=== PATIENT | male | born 1935 | race Caucasian/White ===

== ENCOUNTER 2018-03-06 13:15 | Outpatient (CLI) | payer MEDICARE ==
[2018-03-06] MEDS ORDERED: Gadobenate Dimeglumine 529 MG/1 ML (20ML VIAL) ONE (13:26)
--- NOTE | 2018-03-06 16:29 | MRI ---
MRI OF LUMBAR SPINE WITH AND WITHOUT CONTRAST 03/06/18 COMPARISON: MRI lumbar spine 09/07/17. HISTORY: Low back pain with history of lumbar spine surgery, lumbar stenosis with neurogenic claudication. TECHNIQUE: Multiplanar and multisequence MRI imaging of the lumbar spine provided with and without contrast. FINDINGS: On the basis of bilateral L5 pars defects there is anterolisthesis of L5 on S1 measuring 1.1 cm, stab le when compared to the 09/07/17 examination. On the basis of five lumbar type vertebral bodies, conus medullaris terminates at the T12 level. T12-L1: Intervertebral disc height and signal intensities within normal limits with no significant ce ntral canal or neural foraminal stenosis. L1-2: Mild bilateral facet hypertrophy. Intervertebral disc height appears normal. Mild disc desiccat ion. No central canal or neural foraminal stenosis. L2-3: Disc desiccation and mild disc space narrowing. Mild bilateral facet hypertrophy. No significan t central canal or neural foraminal stenosis. L3-4: Disc space narrowing, disc desiccation and disc bulge. Mild bilateral facet hypertrophy. No sig nificant central canal stenosis or neural foraminal stenosis. L4-5: There is disc desiccation. there is an annular tear in the central/right paracentral region. Th ere is no central canal stenosis. Bilateral facet hypertrophy noted, right greater than left. Mild le ft neural foraminal stenosis. L5-S1: Disc space narrowing, degenerative end plate change and bilateral facet hypertrophy. No centra l canal stenosis. Severe bilateral neural foraminal stenosis, stable. The imaged retroperitoneal structures demonstrate no acute findings. Incompletely imaged T2 hyperinte nse lesion in right kidney noted suggesting a probable cyst. Postcontrast imaging is provided. This demonstrates evidence of prior hemilaminectomy on the left at the L5-S1 level. Postcontrast imaging demonstrates no abnormal enhancement involving the nerve roots of the cauda equina, the intervertebral discs or the imaged osseous structures. IMPRESSION: Postoperative and degenerative changes seen within the lumbar spine as detailed above. The most signi ficant finding is severe bilateral neural foraminal stenosis at L5-S1 on the basis of anterolisthesis associated with bilateral L5 pars defects. POS: [facility]
== END 2018-03-06 13:16 | disposition home or self-care (01) ==
LOC: TBSIIMAG 13:15
PROVIDERS: ATTEND Neurological Surgery
DX: M48.062 Spinal stenosis, lumbar region with neurogenic claudication (principal); M47.816 Spondylosis without myelopathy or radiculopathy, lumbar region; M47.817 Spondylosis without myelopathy or radiculopathy, lumbosacral region; Z98.890 Other specified postprocedural states; M43.16 Spondylolisthesis, lumbar region; M48.07 Spinal stenosis, lumbosacral region
CPT/HCPCS: 72158; 82565; A9579

== ENCOUNTER 2018-04-21 22:12 | Emergency (ER) | payer MEDICARE ==
[2018-04-21 23:20] LABS: #Eosinphils 0.5 thou/uL (0.0-0.7); #Lymphocytes 2.7 thou/uL (1.20-3.40); #Monocytes 0.8 thou/uL (0.11-0.59); #Neutrophils 2.8 thou/uL (1.40-6.50); %Basophils 0.7 % (0.0-1.0); %Eosinophils 7.9 % (0.0-10.0); %Lymphocytes 39.2 % (21.0-51.0); %Monocytes 11.3 % (0.0-10.0); %Neutrophils 40.8 % (42.0-75.0); Mean Corpuscular HGB CONC 34.1 g/dL (32.0-36.0); Mean Corpuscular Hemoglobin 32.2 pg (27.0-31.0); Mean Corpuscular Volume 94.2 fL (78.0-98.0); Mean Platelet Volume 6.8 fL (7.4-10.4); Platelet Count 139 thou/uL (130-400); RBC Distribution Width 11.6 % (11.5-14.5); Red Blood Cell (RBC) Count 3.72 mill/uL (4.70-6.10); White Blood Cell (WBC) Count 6.8 thou/uL (4.8-10.8)
[2018-04-21] MEDS ORDERED: Lidocaine 2% Viscous Solution 20 ML, Aluminum & Magnesium Hydroxide 30 ML, Donnatal Eli... SSW SCH (23:45)
[2018-04-21 23:49] LABS: ALT (SGPT) 19 U/L (8-55); AST (SGOT) 20 U/L (5-34); Albumin 3.9 g/dL (3.4-4.8); Alkaline Phosphatase 32 U/L (40-150); Anion Gap 14 mmol/L (10-20); BUN (Urea Nitrogen) 27 mg/dL (8.4-25.7); Bilirubin, Total 0.6 mg/dL (0.2-1.2); Calc. Creatinine Clearance 0 mL/min (70-130); Calcium 9.7 mg/dL (7.8-10.44); Carbon Dioxide 25 mmol/L (23-31); Chloride 104 mmol/L (98-107); Estimated GFR-MDRD 53; Glucose 89 mg/dL (83-110); Lipase 61 U/L (8-78); Potassium 4.6 mmol/L (3.5-5.1); Protein, Total 5.9 g/dL (5.8-8.1); Sodium 138 mmol/L (136-145)
--- NOTE | 2018-04-22 07:52 | ULT ---
PRELIMINARY REPORT/[facility]/EMERGENTY AFTER-HOURS PROCEDURE US Abdomen Limited, Right Upper Quadrant EXAM DATE/TIME: 04/21/2018 11:51 PM CLINICAL HISTORY: 83 years old, male; Pain; Epigastric pain TECHNIQUE: Real-time ultrasound of the abdomen with image documentation. Examination was focused on the right up per quadrant. COMPARISON: No relevant prior studies available. FINDINGS: The liver exhibits homogeneous echogenicity. Normal gallbladder without cholelithiasis. No gallbladder wall thickening or pericholecystic fluid. The caliber of the common bile duct is normal measuring 4-5 mm. No intrahepatic biliary dilatation. Normal right kidney without hydronephrosis. The pancreas and abdominal aorta are never well visualized due to overlying bowel gas. No ascites. IMPRESSION: 1. Normal gallbladder. 2. No biliary tract dilatation. Thank you for allowing us to participate in the care of your patient. Dictated and Authenticated by: Miguel Crowell MD 04/22/2018 12:39 AM Central Time ([place] & [place]) FINAL REPORT RIGHT UPPER QUADRANT GALLBLADDER ULTRASOUND: FINDINGS: I agree with the preliminary report provided. No definite acute abnormality is evident. A small rig ht renal cyst is noted, measuring up to 3.8 cm. This is slightly larger than on a comparison CT date d 03/14/2014. IMPRESSION: 1. No acute sonographic abnormality within the right upper quadrant. 2. Right renal cyst. POS: [facility]
== END 2018-04-22 00:32 | disposition home or self-care (01) ==
LOC: ERS 22:12
DX: K29.70 Gastritis, unspecified, without bleeding (principal); E11.9 Type 2 diabetes mellitus without complications; E78.5 Hyperlipidemia, unspecified; E78.00 Pure hypercholesterolemia, unspecified; Z79.899 Other long term (current) drug therapy; Z79.84 Long term (current) use of oral hypoglycemic drugs; Z79.82 Long term (current) use of aspirin
CPT/HCPCS: 36415; 76705; 80053; 83690; 84484; 85025; 93005

== ENCOUNTER 2019-04-16 19:41 | Emergency (ER) | payer MEDICARE ==
--- NOTE | 2019-04-16 21:08 | RAD ---
XR Chest 1 View Portable HISTORY: Weakness COMPARISON: None FINDINGS: The heart size is normal. The lungs are well expanded without focal areas of consolidation, pneumothorax or pleural effusions. IMPRESSION: No radiographic evidence of acute cardiopulmonary process.
[2019-04-16 21:10] LABS: #Basophils 0.1 thou/uL (0.0-0.2); #Eosinphils 0.2 thou/uL (0.0-0.7); #Lymphocytes 2.4 thou/uL (1.20-3.40); #Neutrophils 4.9 thou/uL (1.40-6.50); %Basophils 0.8 % (0.0-1.0); %Eosinophils 2.2 % (0.0-10.0); %Lymphocytes 28.5 % (21.0-51.0); %Monocytes 11.2 % (0.0-10.0); %Neutrophils 57.3 % (42.0-75.0); Mean Corpuscular HGB CONC 34.7 g/dL (32.0-36.0); Mean Corpuscular Hemoglobin 32.6 pg (27.0-31.0); Mean Platelet Volume 7.5 fL (7.4-10.4); Platelet Count 166 thou/uL (130-400); RBC Distribution Width 11.4 % (11.5-14.5); Red Blood Cell (RBC) Count 3.67 mill/uL (4.70-6.10); White Blood Cell (WBC) Count 8.5 thou/uL (4.8-10.8)
[2019-04-16 21:29] LABS: ALT (SGPT) 16 U/L (8-55); AST (SGOT) 19 U/L (5-34); Albumin 3.6 g/dL (3.4-4.8); Alkaline Phosphatase 33 U/L (40-110); Anion Gap 13 mmol/L (10-20); BUN (Urea Nitrogen) 37 mg/dL (8.4-25.7); Bilirubin, Total 0.7 mg/dL (0.2-1.2); Calc. Creatinine Clearance 0 mL/min (70-130); Calcium 9.2 mg/dL (7.8-10.44); Carbon Dioxide 25 mmol/L (23-31); Chloride 102 mmol/L (98-107); Estimated GFR-MDRD 26; Globulin 2.2 g/dL (2.4-3.5); Glucose 158 mg/dL (83-110); Potassium 4.7 mmol/L (3.5-5.1); Protein, Total 5.8 g/dL (5.8-8.1); Sodium 135 mmol/L (136-145)
[2019-04-16 21:45] LABS: Bacteria/HPF None Seen HPF (None Seen); Bilirubin Negative (Negative); Blood, Urine 2+ (Negative); Clarity Turbid (Clear); Glucose, Urine (Dipstick) Normal (Negative); Leukocyte Negative Leu/uL (Negative); Nitrite Negative (Negative); Protein, Urine (Dipstick) 100 mg/dL (Neg-Trace); RBC/HPF 0-3 HPF (0-3); Squamous Epithelial 0-3 HPF (0-3); Urobilinogen Normal mg/dL (Less than 2)
[2019-04-16 21:52] LABS: CKMB 6.2 ng/mL (0-6.6)
[2019-04-17 01:05] LABS: Anion Gap 15 mmol/L (10-20); BUN (Urea Nitrogen) 34 mg/dL (8.4-25.7); Calc. Creatinine Clearance 0 mL/min (70-130); Calcium 8.8 mg/dL (7.8-10.44); Carbon Dioxide 19 mmol/L (23-31); Chloride 106 mmol/L (98-107); Estimated GFR-MDRD 31; Glucose 153 mg/dL (83-110); Potassium 4.9 mmol/L (3.5-5.1); Sodium 135 mmol/L (136-145)
[2019-04-17 01:28] LABS: CKMB 6.3 ng/mL (0-6.6)
== END 2019-04-17 01:28 | disposition home or self-care (01) ==
LOC: ERS 19:41
DX: E86.0 Dehydration (principal); E11.9 Type 2 diabetes mellitus without complications; E78.5 Hyperlipidemia, unspecified; E78.00 Pure hypercholesterolemia, unspecified; Z87.891 Personal history of nicotine dependence; Z79.899 Other long term (current) drug therapy; Z79.82 Long term (current) use of aspirin; Z79.84 Long term (current) use of oral hypoglycemic drugs
CPT/HCPCS: 36415; 71045; 80048; 80053; 81003; 81015; 82553; 83880; 84484; 85025; 93005; 96360; 96361

== ENCOUNTER 2019-05-06 07:36 | Outpatient (CLI) | payer MEDICARE ==
--- NOTE | 2019-05-06 08:16 | ULT ---
EXAM: US Gallbladder RUQ CLINICAL HISTORY: Epigastric pain. COMPARISON: 04/21/2018 FINDINGS: Pancreas: The head of pancreas in the proximal body of the pancreas have a normal echotexture. The r emainder the pancreas is obscured by bowel gas Liver:Limited evaluation hepatic parenchyma. Heterogeneous echotexture may be due to technical limita tions versus hepatic steatosis or hepatocellular disease. No definite hepatic masses or intrahepatic biliary dilatation. Right hepatic lobe: 10.9 cm Gallbladder: No sonographic evidence of cholelithiasis, gallbladder wall thickening or pericholecysti c fluid. Bardales's sign:Negative Portal Vein: Not adequately assessed Bile ducts: Common bile duct is not adequately visualized Right kidney: No hydronephrosis. Right kidney measures 5.0 x 4.6 x 9.9 cm in length. There is right r enal cortical thinning, measuring 1.4 cm. 2.0 x 2.4 x 4.1 exophytic cyst in the upper pole the right kidney. IMPRESSION: 1. Limited evaluation the liver. No obvious hepatic masses. 2. No definite sonographic evidence of cholelithiasis or cholecystitis. 3. Limited evaluation the common bile duct. 4. No hydronephrosis. Right renal cortical cysts. Right renal cortical thinning.
== END 2019-05-06 07:37 | disposition home or self-care (01) ==
LOC: ULT 07:36
PROVIDERS: ATTEND Family Medicine
DX: R10.13 Epigastric pain (principal); N28.1 Cyst of kidney, acquired; N28.89 Other specified disorders of kidney and ureter
CPT/HCPCS: 76705

== ENCOUNTER 2021-06-30 07:07 | Outpatient (CLI) | payer MEDICARE | END 2021-06-30 07:08 | disposition home or self-care (01) | LOC: BICULT 07:07 | PROVIDERS: ATTEND Family Medicine | DX: R10.9 Unspecified abdominal pain (principal); N28.1 Cyst of kidney, acquired | CPT/HCPCS: 76700 ==

== ENCOUNTER 2021-08-17 16:02 | Outpatient (CLI) | payer MEDICARE, OTHER | END 2021-08-17 16:03 | disposition home or self-care (01) | LOC: BICRAD 16:02 | PROVIDERS: ATTEND Family Medicine | DX: M16.11 Unilateral primary osteoarthritis, right hip (principal) ==

== ENCOUNTER 2021-09-07 10:49 | Outpatient (CLI) | payer MEDICARE | END 2021-09-07 10:50 | disposition home or self-care (01) | LOC: BICRAD 10:49 | PROVIDERS: ATTEND Orthopaedic Surgery | DX: M54.2 Cervicalgia (principal); M54.50 Low back pain, unspecified; M47.816 Spondylosis without myelopathy or radiculopathy, lumbar region; M43.17 Spondylolisthesis, lumbosacral region | CPT/HCPCS: 72040; 72100 ==

== ENCOUNTER 2021-12-02 09:49 | Emergency (ER) | payer MEDICARE ==
[2021-12-02 11:32] LABS: #Eosinphils 0.3 thou/uL (0.0-0.7); #Lymphocytes 1.6 thou/uL (1.20-3.40); #Monocytes 0.6 thou/uL (0.11-0.59); #Neutrophils 3.3 thou/uL (1.40-6.50); %Basophils 0.5 % (0.0-1.0); %Eosinophils 5.6 % (0.0-10.0); %Lymphocytes 27.1 % (21.0-51.0); %Monocytes 9.9 % (0.0-10.0); %Neutrophils 56.9 % (42.0-75.0); Hemoglobin 11.3 g/dL (14.0-18.0); Mean Corpuscular HGB CONC 32.5 g/dL (32.0-36.0); Mean Corpuscular Hemoglobin 31.1 pg (27.0-31.0); Mean Corpuscular Volume 95.5 fL (78.0-98.0); Mean Platelet Volume 7.2 fL (7.4-10.4); Platelet Count 162 thou/uL (130-400); RBC Distribution Width 13.3 % (11.5-14.5); Red Blood Cell (RBC) Count 3.64 mill/uL (4.70-6.10); White Blood Cell (WBC) Count 5.8 thou/uL (4.8-10.8)
[2021-12-02 11:53] LABS: ALT (SGPT) 9 U/L (8-55); AST (SGOT) 15 U/L (5-34); Albumin 3.6 g/dL (3.4-4.8); Alkaline Phosphatase 40 U/L (40-110); Anion Gap 11 mmol/L (10-20); BUN (Urea Nitrogen) 17 mg/dL (8.4-25.7); Bilirubin, Total 1.1 mg/dL (0.2-1.2); Calc. Creatinine Clearance 0 mL/min (70-130); Calcium 9.4 mg/dL (7.8-10.44); Carbon Dioxide 26 mmol/L (23-31); Chloride 102 mmol/L (98-107); Estimated GFR 66; Globulin 2.6 g/dL (2.4-3.5); Glucose 118 mg/dL (83-110); Potassium 4.1 mmol/L (3.5-5.1); Protein, Total 6.2 g/dL (5.8-8.1); Sodium 135 mmol/L (136-145)
[2021-12-02 12:20] LABS: CKMB 2.5 ng/mL (0-6.6)
== END 2021-12-02 13:30 | disposition home or self-care (01) ==
LOC: ERS 09:49
DX: R07.89 Other chest pain (principal); E11.9 Type 2 diabetes mellitus without complications; E78.5 Hyperlipidemia, unspecified; E78.00 Pure hypercholesterolemia, unspecified; Z87.891 Personal history of nicotine dependence; Z95.0 Presence of cardiac pacemaker; Z79.899 Other long term (current) drug therapy; Z79.84 Long term (current) use of oral hypoglycemic drugs
CPT/HCPCS: 36415; 71045; 80053; 82553; 83880; 84484; 85025; 93005; 94760

== ENCOUNTER 2022-01-08 11:05 | Emergency (ER) | payer MEDICARE ==
[2022-01-08] MEDS ORDERED: Bacitracin 1 PK ONE (12:19)
== END 2022-01-08 12:29 | disposition home or self-care (01) ==
LOC: ERS 11:05
DX: E11.621 Type 2 diabetes mellitus with foot ulcer (principal); L97.501 Non-pressure chronic ulcer of other part of unspecified foot limited to breakdown of skin; L03.90 Cellulitis, unspecified; E78.00 Pure hypercholesterolemia, unspecified; Z79.84 Long term (current) use of oral hypoglycemic drugs; Z79.899 Other long term (current) drug therapy; Z87.891 Personal history of nicotine dependence
CPT/HCPCS: 99283

== ENCOUNTER 2022-06-08 07:08 | Emergency (ER) | payer MEDICARE ==
[2022-06-08 07:49] LABS: #Eosinphils 0.3 thou/uL (0.0-0.7); #Lymphocytes 1.5 thou/uL (1.20-3.40); #Monocytes 0.9 thou/uL (0.11-0.59); #Neutrophils 3.6 thou/uL (1.40-6.50); %Basophils 0.7 % (0.0-1.0); %Eosinophils 5.3 % (0.0-10.0); %Lymphocytes 23.6 % (21.0-51.0); %Monocytes 14.5 % (0.0-10.0); %Neutrophils 55.8 % (42.0-75.0); Hemoglobin 9.2 g/dL (14.0-18.0); Mean Corpuscular HGB CONC 32.5 g/dL (32.0-36.0); Mean Corpuscular Volume 98.3 fl (78.0-98.0); Mean Platelet Volume 6.9 fL (7.4-10.4); Platelet Count 193 10x3/uL (130-400); Red Blood Cell (RBC) Count 2.87 mill/uL (4.70-6.10); White Blood Cell (WBC) Count 6.4 10x3/uL (4.8-10.8)
[2022-06-08 08:03] LABS: ALT (SGPT) 24 U/L (8-55); AST (SGOT) 22 U/L (5-34); Albumin 3.6 g/dL (3.4-4.8); Alkaline Phosphatase 47 U/L (40-110); Anion Gap 13 mmol/L (10-20); BUN (Urea Nitrogen) 23 mg/dL (8.4-25.7); Bilirubin, Total 0.7 mg/dL (0.2-1.2); Calc. Creatinine Clearance 0 mL/min (70-130); Calcium 8.9 mg/dL (7.8-10.44); Carbon Dioxide 21 mmol/L (23-31); Chloride 104 mmol/L (98-107); Estimated GFR 42; Globulin 2.4 g/dL (2.4-3.5); Glucose 118 mg/dL (83-110); Potassium 4.3 mmol/L (3.5-5.1); Sodium 134 mmol/L (136-145)
[2022-06-08 08:36] LABS: Bilirubin Negative (Negative); Blood, Urine Negative (Negative); Clarity Clear (Clear); Glucose, Urine (Dipstick) Normal (Negative); Ketone, Urine Trace mg/dL (Negative); Leukocyte Negative Leu/uL (Negative); Nitrite Negative (Negative); Protein, Urine (Dipstick) Negative (Neg-Trace); Urobilinogen Normal mg/dL (Less than 2)
[2022-06-08] MEDS ORDERED: HYDROcodone/Acetaminophen 7.5/325 mg Tablet ONE ×2 (10:15→10:21)
== END 2022-06-08 10:33 | disposition home or self-care (01) ==
LOC: ERS 07:08
DX: B34.9 Viral infection, unspecified (principal); E86.0 Dehydration; M54.9 Dorsalgia, unspecified; E11.621 Type 2 diabetes mellitus with foot ulcer; L97.928 Non-pressure chronic ulcer of unspecified part of left lower leg with other specified severity; I25.10 Atherosclerotic heart disease of native coronary artery without angina pectoris; E78.00 Pure hypercholesterolemia, unspecified; Z87.891 Personal history of nicotine dependence; Z79.84 Long term (current) use of oral hypoglycemic drugs
CPT/HCPCS: 80053; 81003; 83605; 83880; 85025; 93005; 96360; 96361

== ENCOUNTER 2022-06-09 09:36 | Emergency (ER) | payer MEDICARE ==
[2022-06-09 10:57] LABS: #Eosinphils 0.2 thou/uL (0.0-0.7); #Lymphocytes 1.2 thou/uL (1.20-3.40); #Monocytes 0.6 thou/uL (0.11-0.59); #Neutrophils 2.8 thou/uL (1.40-6.50); %Basophils 0.5 % (0.0-1.0); %Eosinophils 3.7 % (0.0-10.0); %Lymphocytes 25.4 % (21.0-51.0); %Monocytes 12.9 % (0.0-10.0); %Neutrophils 57.5 % (42.0-75.0); Hemoglobin 9.4 g/dL (14.0-18.0); Mean Corpuscular HGB CONC 33.3 g/dL (32.0-36.0); Mean Corpuscular Hemoglobin 32.8 pg (27.0-31.0); Mean Corpuscular Volume 98.4 fl (78.0-98.0); Mean Platelet Volume 6.5 fL (7.4-10.4); Platelet Count 181 10x3/uL (130-400); Red Blood Cell (RBC) Count 2.86 mill/uL (4.70-6.10); White Blood Cell (WBC) Count 4.9 10x3/uL (4.8-10.8)
[2022-06-09] MEDS ORDERED: Iopamidol-370 76% 500 ML MDV (1 ML CHARGE) ONE (11:09)
[2022-06-09 11:37] LABS: CKMB 4.7 ng/mL (0-6.6)
[2022-06-09 13:39] LABS: ALT (SGPT) 27 U/L (8-55); AST (SGOT) 25 U/L (5-34); Albumin 3.6 g/dL (3.4-4.8); Alkaline Phosphatase 42 U/L (40-110); Anion Gap 15 mmol/L (10-20); BUN (Urea Nitrogen) 18 mg/dL (8.4-25.7); Bilirubin, Total 0.8 mg/dL (0.2-1.2); Calc. Creatinine Clearance 0 mL/min (70-130); Carbon Dioxide 21 mmol/L (23-31); Chloride 103 mmol/L (98-107); Estimated GFR 51; Globulin 2.4 g/dL (2.4-3.5); Glucose 102 mg/dL (83-110); Potassium 4.2 mmol/L (3.5-5.1); Sodium 135 mmol/L (136-145)
[2022-06-09 14:22] LABS: Troponin I 0.052 ng/mL (< 0.028)
[2022-06-09 15:58] LABS: Bilirubin Negative (Negative); Blood, Urine Negative (Negative); Clarity Clear (Clear); Glucose, Urine (Dipstick) Normal (Negative); Ketone, Urine Trace mg/dL (Negative); Leukocyte Negative Leu/uL (Negative); Nitrite Negative (Negative); Protein, Urine (Dipstick) Negative (Neg-Trace); Specific Gravity, Urine 1.014 (1.002-1.036); Urobilinogen Normal mg/dL (Less than 2)
== END 2022-06-09 15:22 | disposition home or self-care (01) ==
LOC: ERS 09:36
DX: S32.039A Unspecified fracture of third lumbar vertebra, initial encounter for closed fracture (principal); S22.010A Wedge compression fracture of first thoracic vertebra, initial encounter for closed fracture; S22.020A Wedge compression fracture of second thoracic vertebra, initial encounter for closed fracture; R53.1 Weakness; I25.10 Atherosclerotic heart disease of native coronary artery without angina pectoris; E78.00 Pure hypercholesterolemia, unspecified; E11.9 Type 2 diabetes mellitus without complications; W18.30XA Fall on same level, unspecified, initial encounter; Y92.091 Bathroom in other non-institutional residence as the place of occurrence of the external cause; Z79.899 Other long term (current) drug therapy; Z79.84 Long term (current) use of oral hypoglycemic drugs; Z87.891 Personal history of nicotine dependence
CPT/HCPCS: 36415; 70450; 71260; 72125; 74177; 80053; 81003; 82550; 82553; 83605; 84484; 85025; 93005; Q9967

== ENCOUNTER 2022-06-26 11:35 | Emergency (ER) | payer MEDICARE ==
[2022-06-26 13:55] LABS: #Eosinphils 0.1 thou/uL (0.0-0.7); #Lymphocytes 1.4 thou/uL (1.20-3.40); #Monocytes 0.8 thou/uL (0.11-0.59); #Neutrophils 3.6 thou/uL (1.40-6.50); %Basophils 0.5 % (0.0-1.0); %Eosinophils 2.4 % (0.0-10.0); %Lymphocytes 23.4 % (21.0-51.0); %Neutrophils 60.8 % (42.0-75.0); Hemoglobin 9.8 g/dL (14.0-18.0); Mean Corpuscular HGB CONC 34.2 g/dL (32.0-36.0); Mean Corpuscular Hemoglobin 32.8 pg (27.0-31.0); Mean Platelet Volume 6.7 fL (7.4-10.4); Platelet Count 248 10x3/uL (130-400); RBC Distribution Width 12.9 % (11.5-14.5); White Blood Cell (WBC) Count 5.9 10x3/uL (4.8-10.8)
[2022-06-26 14:02] LABS: Bilirubin Negative (Negative); Glucose, Urine (Dipstick) Normal (Negative); Protein, Urine (Dipstick) Negative (Neg-Trace); Urobilinogen Normal mg/dL (Less than 2)
[2022-06-26 14:08] LABS: Blood, Urine Negative (Negative); Clarity Clear (Clear); Ketone, Urine Trace mg/dL (Negative); Leukocyte Negative Leu/uL (Negative); Nitrite Negative (Negative); Specific Gravity, Urine 1.007 (1.002-1.036)
[2022-06-26 14:14] LABS: ALT (SGPT) 15 U/L (8-55); AST (SGOT) 23 U/L (5-34); Albumin 3.3 g/dL (3.4-4.8); Alkaline Phosphatase 41 U/L (40-110); Anion Gap 15 mmol/L (10-20); BUN (Urea Nitrogen) 11 mg/dL (8.4-25.7); Bilirubin, Total 0.9 mg/dL (0.2-1.2); Calc. Creatinine Clearance 0 mL/min (70-130); Calcium 8.8 mg/dL (7.8-10.44); Carbon Dioxide 21 mmol/L (23-31); Chloride 103 mmol/L (98-107); Estimated GFR 69; Globulin 2.6 g/dL (2.4-3.5); Glucose 81 mg/dL (83-110); Potassium 3.9 mmol/L (3.5-5.1); Protein, Total 5.9 g/dL (5.8-8.1); Sodium 135 mmol/L (136-145)
[2022-06-26] MEDS ORDERED: traMADol HCl 50 MG TAB ONE (14:15)
== END 2022-06-26 14:34 | disposition home or self-care (01) ==
LOC: ERS 11:35
DX: S32.028A Other fracture of second lumbar vertebra, initial encounter for closed fracture (principal); M25.552 Pain in left hip; I25.10 Atherosclerotic heart disease of native coronary artery without angina pectoris; E11.9 Type 2 diabetes mellitus without complications; E78.00 Pure hypercholesterolemia, unspecified; W18.30XA Fall on same level, unspecified, initial encounter; Z87.891 Personal history of nicotine dependence
CPT/HCPCS: 36415; 72131; 72170; 80053; 81003; 85025

== ENCOUNTER 2022-08-29 10:29 | Emergency (ER) | payer MEDICARE ==
[2022-08-29 11:15] LABS: #Basophils 0.1 thou/uL (0.0-0.2); #Eosinphils 0.1 thou/uL (0.0-0.7); #Monocytes 0.6 thou/uL (0.11-0.59); #Neutrophils 2.9 thou/uL (1.40-6.50); %Basophils 0.8 % (0.0-1.0); %Monocytes 10.6 % (0.0-10.0); %Neutrophils 48.4 % (42.0-75.0); Hemoglobin 12.6 g/dL (14.0-18.0); Mean Corpuscular HGB CONC 34.1 g/dL (32.0-36.0); Mean Corpuscular Hemoglobin 30.4 pg (27.0-31.0); Mean Corpuscular Volume 88.9 fl (78.0-98.0); Mean Platelet Volume 9.4 fL (7.4-10.4); Platelet Count 234 10x3/uL (130-400); RBC Distribution Width 14.2 % (11.5-14.5); Red Blood Cell (RBC) Count 4.15 mill/uL (4.70-6.10)
[2022-08-29 11:19] LABS: Bacteria/HPF None Seen HPF (None Seen); Bilirubin Negative (Negative); Blood, Urine Negative (Negative); CAUTI Indications for Culture Dysuria,urgency,freq; Clarity Clear (Clear); Glucose, Urine (Dipstick) Normal (Negative); Ketone, Urine Negative (Negative); Leukocyte Negative Leu/uL (Negative); Nitrite Negative (Negative); Protein, Urine (Dipstick) Negative (Neg-Trace); RBC/HPF 0-3 HPF (0-3); Specific Gravity, Urine 1.009 (1.002-1.036); Squamous Epithelial None Seen HPF (0-3); Urobilinogen Normal mg/dL (Less than 2); WBC/HPF 0-3 HPF (0-3)
[2022-08-29 11:21] LABS: Urine Culture Reflex No No
[2022-08-29 11:36] LABS: ALT (SGPT) 11 U/L (8-55); AST (SGOT) 16 U/L (5-34); Albumin 4.5 g/dL (3.4-4.8); Alkaline Phosphatase 39 U/L (40-110); Anion Gap 18 mmol/L (10-20); BUN (Urea Nitrogen) 18 mg/dL (8.4-25.7); Bilirubin, Total 0.7 mg/dL (0.2-1.2); Calc. Creatinine Clearance 0 mL/min (70-130); Calcium 10.5 mg/dL (7.8-10.44); Carbon Dioxide 22 mmol/L (23-31); Chloride 96 mmol/L (98-107); Estimated GFR 70; Glucose 110 mg/dL (83-110); Potassium 4.5 mmol/L (3.5-5.1); Protein, Total 7.5 g/dL (5.8-8.1); Sodium 131 mmol/L (136-145)
[2022-08-29] MEDS ORDERED: Morphine 4 MG/ML VIAL ONE (12:18)
[2022-08-29] MEDS ORDERED: Iopamidol-370 76% 500 ML MDV (1 ML CHARGE) ONE (13:29)
== END 2022-08-29 14:06 | disposition home or self-care (01) ==
LOC: ERS 10:29
DX: N13.2 Hydronephrosis with renal and ureteral calculous obstruction (principal); E83.52 Hypercalcemia; N28.1 Cyst of kidney, acquired; I25.10 Atherosclerotic heart disease of native coronary artery without angina pectoris; E11.9 Type 2 diabetes mellitus without complications; E78.00 Pure hypercholesterolemia, unspecified; Z87.891 Personal history of nicotine dependence
CPT/HCPCS: 51701; 74177; 80053; 81001; 83690; 85025; 87086; 93005; 96374; J2270

== ENCOUNTER 2022-11-09 10:28 | Outpatient (CLI) | payer MEDICARE | END 2022-11-09 10:29 | disposition home or self-care (01) | LOC: BICRAD 10:28 | PROVIDERS: ATTEND Family Medicine | DX: M54.9 Dorsalgia, unspecified (principal); M25.551 Pain in right hip; M47.812 Spondylosis without myelopathy or radiculopathy, cervical region; M43.12 Spondylolisthesis, cervical region; M48.54XA Collapsed vertebra, not elsewhere classified, thoracic region, initial encounter for fracture; M47.816 Spondylosis without myelopathy or radiculopathy, lumbar region; M48.56XD Collapsed vertebra, not elsewhere classified, lumbar region, subsequent encounter for fracture with routine healing | CPT/HCPCS: 72040; 72072; 72100 ==

== ENCOUNTER 2022-11-15 17:49 | Emergency (ER) | payer MEDICARE | END 2022-11-15 20:19 | disposition home or self-care (01) | LOC: ERS 17:49 | DX: M79.651 Pain in right thigh (principal); I25.10 Atherosclerotic heart disease of native coronary artery without angina pectoris; E11.9 Type 2 diabetes mellitus without complications; Z95.5 Presence of coronary angioplasty implant and graft; Z95.0 Presence of cardiac pacemaker; Z87.891 Personal history of nicotine dependence; Z79.01 Long term (current) use of anticoagulants; Z79.899 Other long term (current) drug therapy | CPT/HCPCS: 36415; 85379 ==

== ENCOUNTER 2022-12-14 12:32 | Outpatient (CLI) | payer MEDICARE | END 2022-12-14 12:33 | disposition home or self-care (01) | LOC: CT 12:32 | PROVIDERS: ATTEND Family Medicine | DX: R41.82 Altered mental status, unspecified (principal); R60.9 Edema, unspecified | CPT/HCPCS: 70450 ==

== ENCOUNTER 2023-04-21 12:08 | Observation (INO) | payer MEDICARE ==
[2023-04-21] MEDS ORDERED: HYDROcodone/Acetaminophen 5/325 mg Tablet ONE (12:57)
[2023-04-21 13:21] LABS: Bacteria/HPF None Seen HPF (None Seen); Bilirubin Negative (Negative); Blood, Urine Negative (Negative); CAUTI Indications for Culture Alt mental st,lethar; Clarity Clear (Clear); Glucose, Urine (Dipstick) Normal (Negative); Ketone, Urine Trace mg/dL (Negative); Leukocyte Negative Leu/uL (Negative); Nitrite Negative (Negative); Protein, Urine (Dipstick) 10 mg/dL (Neg-Trace); RBC/HPF 0-3 HPF (0-3); Specific Gravity, Urine 1.027 (1.002-1.036); Squamous Epithelial None Seen HPF (0-3); Urobilinogen Normal mg/dL (Less than 2); WBC/HPF 0-3 HPF (0-3); pH, Urine 5.5 (5.0-9.0)
[2023-04-21 13:29] LABS: Amphetamine Not Detected (NotDetected); Barbiturates Screen Not Detected (NotDetected); Benzodiazepine Screen Not Detected (NotDetected); Cocaine Metabolite Screen Not Detected (NotDetected); Methadone Not Detected (NotDetected); Methamphetamine Not Detected (NotDetected); Opiate Screen Detected (NotDetected); Oxycodone Screen Not Detected (NotDetected); Phencyclidine (PCP) Not Detected (NotDetected); THC/Cannabinoid Screen Not Detected (NotDetected); Tricyclic Screen Not Detected (NotDetected)
[2023-04-21 13:29] LABS: #Eosinphils 0.1 thou/uL (0.0-0.7); #Monocytes 0.9 thou/uL (0.11-0.59); #Neutrophils 4.4 thou/uL (1.40-6.50); %Basophils 0.4 % (0.0-1.0); %Eosinophils 0.7 % (0.0-10.0); %Lymphocytes 19.9 % (21.0-51.0); %Monocytes 13.7 % (0.0-10.0); Hematocrit 28.9 % (42.0-52.0); Hemoglobin 9.4 g/dL (14.0-18.0); Mean Corpuscular HGB CONC 32.5 g/dL (32.0-36.0); Mean Corpuscular Hemoglobin 31.6 pg (27.0-31.0); Mean Corpuscular Volume 97.3 fl (78.0-98.0); Mean Platelet Volume 8.8 fL (7.4-10.4); Platelet Count 229 10x3/uL (130-400); RBC Distribution Width 14.8 % (11.5-14.5); Red Blood Cell (RBC) Count 2.97 mill/uL (4.70-6.10); White Blood Cell (WBC) Count 6.8 10x3/uL (4.8-10.8)
[2023-04-21 13:30] LABS: Urine Culture Reflex No No
[2023-04-21 13:50] LABS: ALT (SGPT) 10 U/L (8-55); AST (SGOT) 16 U/L (5-34); Albumin 3.2 g/dL (3.4-4.8); Alkaline Phosphatase 52 U/L (40-110); Anion Gap 13 mmol/L (10-20); BUN (Urea Nitrogen) 33 mg/dL (8.4-25.7); Bilirubin, Total 0.7 mg/dL (0.2-1.2); CK (CPK) 96 U/L (30-200); Calc. Creatinine Clearance 0 mL/min (70-130); Calcium 9.1 mg/dL (7.8-10.44); Carbon Dioxide 24 mmol/L (23-31); Chloride 103 mmol/L (98-107); Estimated GFR 61; Globulin 2.8 g/dL (2.4-3.5); Glucose 123 mg/dL (83-110); Potassium 4.5 mmol/L (3.5-5.1); Sodium 135 mmol/L (136-145)
[2023-04-21 13:53] LABS: Troponin I 0.031 ng/mL (< 0.028)
[2023-04-21 13:54] LABS: Acetaminophen Less than 10 mcg/mL (10.0-30.0); Alcohol Less than 10.0 mg/dL (Less than 10); Lipase 51 U/L (8-78); Salicylate Less than 8.0 mg/dL (15.0-30.0)
[2023-04-21] MEDS ORDERED: traMADol HCl 50 MG TAB PO PRN (14:47)
[2023-04-21] MEDS ORDERED: Calcium Carbonate 500 MG ChewTAB PO PRN (14:48)
[2023-04-21] MEDS ORDERED: Senokot S 8.6-50 MG TAB PO PRN (14:48)
[2023-04-21] MEDS ORDERED: Ondansetron PF 4 MG/2 ML Vial IVP PRN (14:48)
[2023-04-21] MEDS ORDERED: Acetaminophen 325 MG TAB PO PRN (14:48)
[2023-04-21] MEDS ORDERED: Sodium Chloride 0.9% 1,000 ML IV SCH (15:00)
[2023-04-21 15:29] LABS: Hemoglobin A1c 8.1 % (4.0-6.0)
[2023-04-21 15:34] LABS: Cardiac Risk 3.1 (Less than 4.5)
[2023-04-21 15:48] LABS: Troponin I 0.028 ng/mL (< 0.028)
[2023-04-21] MEDS ORDERED: Carvedilol 6.25 MG TAB PO SCH (17:00)
[2023-04-21 17:01] VITALS: BP 117/57; TEMP 98.3
[2023-04-22] MEDS ORDERED: Rivaroxaban 2.5 MG TAB PO SCH (09:00)
[2023-04-22] MEDS ORDERED: Clopidogrel Bisulfate 75 MG TAB PO SCH (09:00)
[2023-04-22] MEDS ORDERED: Rosuvastatin 20 MG TAB PO SCH (09:00)
[2023-04-22] MEDS ORDERED: Amiodarone 200 MG TAB PO SCH (09:00)
[2023-04-22] MEDS ORDERED: Tamsulosin HCl 0.4 MG CAP PO SCH (09:00)
[2023-04-22] MEDS ORDERED: Ezetimibe 10 MG TAB PO SCH (09:00)
[2023-04-22] MEDS ORDERED: Finasteride 5 MG TAB PO SCH (09:00)
== END 2023-04-21 17:01 | disposition home or self-care (01) ==
LOC: ERS 12:08 → SUATTDRO 12:08 → ERHOLD 14:48
PROVIDERS: ADMIT Internal Medicine; ATTEND Internal Medicine
DX: R41.82 Altered mental status, unspecified (principal); E78.5 Hyperlipidemia, unspecified; I11.0 Hypertensive heart disease with heart failure; I50.20 Unspecified systolic (congestive) heart failure; I48.91 Unspecified atrial fibrillation; E11.9 Type 2 diabetes mellitus without complications; I73.9 Peripheral vascular disease, unspecified; F03.90 Unspecified dementia, unspecified severity, without behavioral disturbance, psychotic disturbance, mood disturbance, and anxiety; D63.1 Anemia in chronic kidney disease; G89.4 Chronic pain syndrome; Z79.01 Long term (current) use of anticoagulants; Z79.84 Long term (current) use of oral hypoglycemic drugs; Z79.899 Other long term (current) drug therapy
CPT/HCPCS: 36415; 51701; 70450; 71045; 80053; 80061; 80306; 80307; 81001; 82140; 82550; 83036; 83690; 84443; 84484; 85025; 93005; G0378